=== PATIENT | male | born 1970 | race Caucasian/White ===

== ENCOUNTER 2019-03-14 14:25 | Emergency (ER) | payer MEDICAID ==
[~2019-03-14] VITALS: Ht 177.8 cm; Wt 110.2 kg
[2019-03-14 14:33] VITALS: BP 141/97
--- NOTE | 2019-03-14 14:39 | NUR ---
PT AMBULATED TO ER BED 05
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
[2019-03-14] MEDS ORDERED: NEOMYCIN/POLYMYXIN/BACITRACIN 0.9 GM/1 PKT TP ONE (15:20)
[2019-03-14] MEDS ORDERED: HYDROcodone/APAP 5/325 MG 1 TAB TAB PO ONE (15:20)
[2019-03-14] MEDS ORDERED: cefTRIAXone 1,000 MG in LIDOCAINE 1% ***ER ONLY *** 2.1 ML IM ONE (15:20)
[2019-03-14] MEDS ORDERED: LIDOCAINE 1% 500 MG/50 ML VIAL INJ ONE (15:20)
[2019-03-14] MEDS ORDERED: cefTRIAXone 1,000 MG VIAL ONE (15:34)
[2019-03-14] MEDS ORDERED: LIDOCAINE MPF 1% - 5 mL VIAL 10 ML ONE (15:37)
[2019-03-14 17:14] VITALS: BP 139/95
--- NOTE | 2019-03-14 17:14 | NUR ---
Patient discharged with v/s stable. Written and verbal after care instructions given and explained. Patient alert, oriented and verbalized understanding of instructions. Ambulatory with steady gait. All questions addressed prior to discharge. ID band removed. Patient advised to follow up with PMD. Rx of CLINDAMYCIN, LEVAQUIN, NORCO given. Patient educated on indication of medication including possible reaction and side effects. Opportunity to ask questions provided and answered.
== END 2019-03-14 17:14 | disposition home or self-care (01) ==
LOC: MED 14:25
DX: S61.542A Puncture wound with foreign body of left wrist, initial encounter (principal); Z88.0 Allergy status to penicillin; W45.8XXA Other foreign body or object entering through skin, initial encounter; Y93.89 Activity, other specified; Y92.099 Unspecified place in other non-institutional residence as the place of occurrence of the external cause; Y99.8 Other external cause status
CPT/HCPCS: 29105; 73110; 90471; 90715; 96372; 99284; J0696; J2001; Q0092; 96365